=== PATIENT | male | born 1950 | race Caucasian/White ===

== ENCOUNTER 2018-10-22 15:51 | Inpatient (IN) | payer MEDICARE, MEDICAID ==
[~2018-10-22] VITALS: Ht 188 cm; Wt 88.7 kg
[2018-10-22] MEDS ORDERED: TAMS-11 PO (16:19)
[2018-10-22] MEDS ORDERED: OXYC-307 PO (16:19)
[2018-10-22] MEDS ORDERED: OMEP20TA62 PO (16:19)
[2018-10-22] MEDS ORDERED: GABA300C10 PO (16:19)
[2018-10-22] MEDS ORDERED: ATOR40TA78 PO (16:19)
[2018-10-22] MEDS ORDERED: METO25TA91 PO (16:19)
[2018-10-22] MEDS ORDERED: AMIT100T PO (16:19)
[2018-10-22] MEDS ORDERED: AMLO-150 PO (16:19)
[2018-10-22] MEDS ORDERED: LISI5TAB7 PO (16:19)
[2018-10-22] MEDS ORDERED: ASPI-496 PO (16:19)
[2018-10-22] MEDS ORDERED: CLOP75TA52 PO (16:19)
[2018-10-22 16:58] LABS: TROPONIN I 0.021 ng/mL (0.000-0.045)
[2018-10-22] MEDS ORDERED: PLEASE ENTER ALLERGIES MC SCH (18:00)
[2018-10-22] MEDS ORDERED: AZITHROMYCIN 500 MG in SODIUM CHLORIDE 0.9% 250 ML IV ONE (18:00)
[2018-10-22] MEDS ORDERED: CEFTRIAXONE PMX 1GM/50ML 50 ML IV ONE (18:00)
[2018-10-22] MEDS ORDERED: CEFTRIAXONE PMX 1GM/50ML 50 ML ONE (18:03)
[2018-10-22] MEDS ORDERED: ONDANSETRON ODT 4 MG PO PRN (19:00)
[2018-10-22] MEDS ORDERED: BISACODYL 10 MG SUPP PR PRN (19:00)
[2018-10-22] MEDS ORDERED: ACETAMINOPHEN 325 MG TABLET PO PRN (19:00)
[2018-10-22] MEDS ORDERED: FUROSEMIDE 40 MG/4 ML IV ONE (19:00)
[2018-10-22 19:03] LABS: INTERNATIONAL NORMALIZED RATIO 0.97 (0.93-1.1); PROTHROMBIN TIME 10.3 Seconds (9.6-11.5)
[2018-10-22 19:38] VITALS: BP 164/91
[2018-10-22] MEDS: GABAPENTIN 300 MG CAPSULE PO SCH (21:31)
[2018-10-22] MEDS: AMLODIPINE 5 MG TABLET PO SCH (21:32)
[2018-10-22] MEDS: AMITRIPTYLINE 50 MG TABLET PO SCH (21:32)
[2018-10-22] MEDS: ATORVASTATIN 40 MG TABLET PO SCH (21:32)
[2018-10-22] MEDS: NICOTINE 14MG/24 HR PATCH.TD24 TD SCH (21:36)
[2018-10-23 01:30] VITALS: BP 149/84
[2018-10-23 05:29] LABS: BASOPHILS # (AUTO) 0.03 x10^3/uL (0-0.1); BASOPHILS % (AUTO) 0 % (0-1); EOSINOPHILS # (AUTO) 0.04 x10^3/uL (0-0.4); EOSINOPHILS % (AUTO) 0 % (1-7); LYMPHOCYTES # (AUTO) 1.13 x10^3/uL (1-3.4); LYMPHOCYTES % (AUTO) 10 % (22-44); MD NO; MEAN CORPUSCULAR HEMOGLOBIN 31.6 pg (27.5-34.5); MEAN CORPUSCULAR HGB CONC 32.9 g/dL (33.2-36.2); MEAN CORPUSCULAR VOLUME 95.9 fL (81-97); MEAN PLATELET VOLUME 8.6 fL (7.4-10.4); MONOCYTES # (AUTO) 0.97 x10^3/uL (0.2-0.8); MONOCYTES % (AUTO) 9 % (2-9); NEUTROPHILS # (AUTO) 8.98 x10^3/uL (1.8-6.8); NEUTROPHILS % (AUTO) 81 % (42-75); PLATELET COUNT 153 x10^3/uL (130-400); RED BLOOD COUNT 4.96 x10^6/uL (4.38-5.82); RED CELL DISTRIBUTION WIDTH 16.1 % (9.4-14.8)
[2018-10-23 05:39] LABS: ALBUMIN 2.4 g/dL (3.4-5.0); CALCIUM 8.7 mg/dL (8.5-10.1); CHLORIDE 101 mmol/L (98-107)
[2018-10-23 05:46] LABS: ALANINE AMINOTRANSFERASE 58 U/L (12-78); ALKALINE PHOSPHATASE 85 U/L (45-117); ANION GAP 10 mmol/L (5-15); BILIRUBIN,TOTAL 0.7 mg/dL (0.2-1.0); CREATININE 1.59 mg/dL (0.7-1.3); TROPONIN I 0.015 ng/mL (0.000-0.045)
[2018-10-23] MEDS ORDERED: FUROSEMIDE 20 MG/2 ML IV SCH (07:30)
[2018-10-23 07:32] VITALS: BP 152/79
[2018-10-23] MEDS: ASPIRIN 81 MG TABLET EC PO SCH (08:49)
[2018-10-23] MEDS: AMLODIPINE 5 MG TABLET PO SCH ×2 (08:49→20:58)
[2018-10-23] MEDS: OMEPRAZOLE 20 MG CAPSULE.DR PO SCH (08:50)
[2018-10-23] MEDS: CLOPIDOGREL 75 MG TABLET PO SCH (08:50)
[2018-10-23] MEDS: METOPROLOL SUCCINATE 25 MG TAB.ER.24H PO SCH (08:50)
[2018-10-23] MEDS: TAMSULOSIN 0.4 MG CAP.ER.24H PO SCH (08:50)
[2018-10-23] MEDS: GABAPENTIN 300 MG CAPSULE PO SCH ×3 (08:50→20:58)
[2018-10-23] MEDS: SENNA/DOCUSATE TABLET PO SCH (08:50)
[2018-10-23] MEDS ORDERED: AMLODIPINE 5 MG TABLET PO SCH (09:00)
[2018-10-23 12:06] LABS: TROPONIN I < 0.015 ng/mL (0.000-0.045)
[2018-10-23 13:43] VITALS: BP 149/86
[2018-10-23] MEDS: POTASSIUM CHLORIDE 10 MEQ in SODIUM CHLORIDE 0.9% 1,000 ML IV SCH (14:34)
[2018-10-23 16:15] LABS: CULTURE INDICATED? YES; MICROSCOPIC INDICATED
[2018-10-23] MEDS ORDERED: OPIUM/BELLADONNA SUPP.RECT 16.2-30 MG PR ONE ×2 (16:30→17:00)
[2018-10-23] MEDS ORDERED: OPIUM/BELLADONNA SUPP.RECT 16.2-30 MG PR PRN (17:00)
[2018-10-23] MEDS: CEFTRIAXONE PMX 1GM/50ML 50 ML IV SCH (17:46)
[2018-10-23] MEDS ORDERED: AZITHROMYCIN 500 MG in SODIUM CHLORIDE 0.9% 250 ML IV SCH (18:30)
[2018-10-23] MEDS: AMITRIPTYLINE 50 MG TABLET PO SCH (20:57)
[2018-10-23] MEDS: ATORVASTATIN 40 MG TABLET PO SCH (20:58)
[2018-10-23] MEDS: NICOTINE 14MG/24 HR PATCH.TD24 TD SCH (21:01)
[2018-10-23 21:03] VITALS: BP 166/91
[2018-10-24 01:02] VITALS: BP 163/94
[2018-10-24 05:16] LABS: BASOPHILS # (AUTO) 0.01 x10^3/uL (0-0.1); BASOPHILS % (AUTO) 0 % (0-1); EOSINOPHILS # (AUTO) 0.06 x10^3/uL (0-0.4); EOSINOPHILS % (AUTO) 1 % (1-7); LYMPHOCYTES # (AUTO) 1.06 x10^3/uL (1-3.4); LYMPHOCYTES % (AUTO) 12 % (22-44); MD NO; MEAN CORPUSCULAR HEMOGLOBIN 31.6 pg (27.5-34.5); MEAN CORPUSCULAR HGB CONC 32.8 g/dL (33.2-36.2); MEAN CORPUSCULAR VOLUME 96.5 fL (81-97); MEAN PLATELET VOLUME 8.3 fL (7.4-10.4); MONOCYTES # (AUTO) 0.74 x10^3/uL (0.2-0.8); MONOCYTES % (AUTO) 8 % (2-9); NEUTROPHILS # (AUTO) 7.21 x10^3/uL (1.8-6.8); NEUTROPHILS % (AUTO) 79 % (42-75); PLATELET COUNT 186 x10^3/uL (130-400); RED BLOOD COUNT 4.98 x10^6/uL (4.38-5.82)
[2018-10-24 05:26] LABS: ALBUMIN 2.5 g/dL (3.4-5.0); ANION GAP 9 mmol/L (5-15); CHLORIDE 103 mmol/L (98-107)
[2018-10-24 05:29] LABS: ALANINE AMINOTRANSFERASE 69 U/L (12-78); ALKALINE PHOSPHATASE 96 U/L (45-117); BILIRUBIN,TOTAL 0.7 mg/dL (0.2-1.0); CREATININE 1.47 mg/dL (0.7-1.3); TOTAL PROTEIN 7.5 g/dL (6.4-8.2)
[2018-10-24] MEDS ORDERED: HYDROmorphone 2 MG/ML, 1ML ONE (08:48)
[2018-10-24] MEDS: HYDROmorphone 2 MG/ML, 1ML IVPush PRN ×3 (08:54→23:57)
[2018-10-24 09:13] VITALS: BP 160/90
[2018-10-24] MEDS: ASPIRIN 81 MG TABLET EC PO SCH (10:38)
[2018-10-24] MEDS: AMLODIPINE 5 MG TABLET PO SCH ×2 (10:38→21:26)
[2018-10-24] MEDS: CLOPIDOGREL 75 MG TABLET PO SCH (10:38)
[2018-10-24] MEDS: TAMSULOSIN 0.4 MG CAP.ER.24H PO SCH (10:38)
[2018-10-24] MEDS: METOPROLOL SUCCINATE 25 MG TAB.ER.24H PO SCH (10:38)
[2018-10-24] MEDS: GABAPENTIN 300 MG CAPSULE PO SCH ×3 (10:38→21:26)
[2018-10-24] MEDS: OMEPRAZOLE 20 MG CAPSULE.DR PO SCH (10:41)
[2018-10-24] MEDS: SENNA/DOCUSATE TABLET PO SCH (10:41)
[2018-10-24] MEDS ORDERED: OMNIPAQUE 350 MG/ML, 75ML BOTTLE ONE (11:09)
[2018-10-24] MEDS ORDERED: SODIUM CHLORIDE 0.9% 1,000 ML IV SCH (13:00)
[2018-10-24] MEDS: POTASSIUM CHLORIDE 10 MEQ in SODIUM CHLORIDE 0.9% 1,000 ML IV SCH (13:43)
[2018-10-24 13:59] VITALS: BP 160/98
[2018-10-24] MEDS: CEFTRIAXONE PMX 1GM/50ML 50 ML IV SCH (17:50)
[2018-10-24 19:51] VITALS: BP 146/80
[2018-10-24] MEDS: ATORVASTATIN 40 MG TABLET PO SCH (21:26)
[2018-10-24] MEDS: AMITRIPTYLINE 50 MG TABLET PO SCH (21:26)
[2018-10-24] MEDS: NICOTINE 14MG/24 HR PATCH.TD24 TD SCH (21:27)
[2018-10-24] MEDS ORDERED: OMNIPAQUE 350 MG/ML, 100ML BOTTLE ONE (22:20)
[2018-10-25] VITALS (7 sets, daily range): BP systolic 149–177; BP diastolic 77–105
[2018-10-25 05:17] LABS: ALBUMIN 2.2 g/dL (3.4-5.0); ANION GAP 7 mmol/L (5-15); CALCIUM 8.8 mg/dL (8.5-10.1); CHLORIDE 104 mmol/L (98-107); CREATININE 1.32 mg/dL (0.7-1.3)
[2018-10-25] MEDS: HYDROmorphone 2 MG/ML, 1ML IVPush PRN ×4 (05:30→21:14)
[2018-10-25] MEDS ORDERED: MAGNESIUM SULFATE PMX 2GM/50ML 50 ML IV ONE (06:00)
[2018-10-25] MEDS ORDERED: POTASSIUM PHOSPHATE 44 MEQ in SODIUM CHLORIDE 0.9% 500 ML IV ONE (06:00)
[2018-10-25] MEDS: CLOPIDOGREL 75 MG TABLET PO SCH (09:00)
[2018-10-25] MEDS ORDERED: POTASSIUM CHLORIDE 10 MEQ in SODIUM CHLORIDE 0.9% 1,000 ML IV SCH (09:30)
[2018-10-25] MEDS: ASPIRIN 81 MG TABLET EC PO SCH (09:51)
[2018-10-25] MEDS: METOPROLOL SUCCINATE 25 MG TAB.ER.24H PO SCH (09:51)
[2018-10-25] MEDS: SENNA/DOCUSATE TABLET PO SCH (09:51)
[2018-10-25] MEDS: OMEPRAZOLE 20 MG CAPSULE.DR PO SCH (09:51)
[2018-10-25] MEDS: GABAPENTIN 300 MG CAPSULE PO SCH ×3 (09:52→21:04)
[2018-10-25] MEDS: AMLODIPINE 5 MG TABLET PO SCH ×2 (09:52→21:04)
[2018-10-25] MEDS: TAMSULOSIN 0.4 MG CAP.ER.24H PO SCH (09:52)
[2018-10-25] MEDS ORDERED: FLUMAZENIL 0.1 MG/1 ML, 5ML ONE (13:41)
[2018-10-25] MEDS ORDERED: MIDAZOLAM 1 MG/ML, 5ML ONE (13:41)
[2018-10-25] MEDS ORDERED: FENTANYL PF 100 MCG/2ML ONE (13:41)
[2018-10-25] MEDS ORDERED: HEPARIN 1,000 UNITS/ML, 10ML ONE (13:42)
[2018-10-25] MEDS ORDERED: PROTAMINE SULFATE 10 MG/ML, 25ML ONE (13:42)
[2018-10-25] MEDS ORDERED: NALOXONE 1 MG/ML, 2ML ONE (13:42)
[2018-10-25] MEDS ORDERED: hydrALAzine 20 MG/ML, 1ML IV PRN (17:30)
[2018-10-25] MEDS: NICOTINE 14MG/24 HR PATCH.TD24 TD SCH (21:03)
[2018-10-25] MEDS: ATORVASTATIN 40 MG TABLET PO SCH (21:04)
[2018-10-25] MEDS: AMITRIPTYLINE 50 MG TABLET PO SCH (21:04)
[2018-10-25] MEDS: hydrALAzine 20 MG/ML, 1ML IV PRN (22:49)
[2018-10-26] MEDS: HYDROmorphone 2 MG/ML, 1ML IVPush PRN ×6 (00:37→23:55)
[2018-10-26 02:00] VITALS: BP 149/73
[2018-10-26 05:04] LABS: ALBUMIN 2.3 g/dL (3.4-5.0); ANION GAP 9 mmol/L (5-15); CALCIUM 8.7 mg/dL (8.5-10.1); CHLORIDE 103 mmol/L (98-107); CREATININE 1.21 mg/dL (0.7-1.3)
[2018-10-26 05:12] LABS: BASOPHILS # (AUTO) 0.03 x10^3/uL (0-0.1); BASOPHILS % (AUTO) 0 % (0-1); EOSINOPHILS # (AUTO) 0.13 x10^3/uL (0-0.4); EOSINOPHILS % (AUTO) 2 % (1-7); LYMPHOCYTES # (AUTO) 1.19 x10^3/uL (1-3.4); LYMPHOCYTES % (AUTO) 17 % (22-44); MD NO; MEAN CORPUSCULAR HEMOGLOBIN 31.3 pg (27.5-34.5); MEAN CORPUSCULAR HGB CONC 32.5 g/dL (33.2-36.2); MEAN CORPUSCULAR VOLUME 96.1 fL (81-97); MEAN PLATELET VOLUME 7.9 fL (7.4-10.4); MONOCYTES # (AUTO) 0.67 x10^3/uL (0.2-0.8); MONOCYTES % (AUTO) 9 % (2-9); NEUTROPHILS # (AUTO) 5.05 x10^3/uL (1.8-6.8); NEUTROPHILS % (AUTO) 71 % (42-75); PLATELET COUNT 214 x10^3/uL (130-400); RED BLOOD COUNT 4.85 x10^6/uL (4.38-5.82); RED CELL DISTRIBUTION WIDTH 16.1 % (9.4-14.8)
[2018-10-26 05:26] LABS: PREALBUMIN 11.1 mg/dL (20.0-40.0)
[2018-10-26] MEDS ORDERED: PROTAMINE SULFATE 10 MG/ML, 5ML ONE (06:51)
[2018-10-26] MEDS ORDERED: BACITRACIN 50,000 UNIT ONE (06:52)
[2018-10-26] MEDS ORDERED: THROMBIN 20,000 UNIT VIAL TP ONE (06:52)
[2018-10-26] MEDS ORDERED: HEPARIN 1,000 UNITS/ML, 30ML ONE (06:52)
[2018-10-26] MEDS ORDERED: MIDAZOLAM 1 MG/ML, 2ML ONE (07:03)
[2018-10-26] MEDS ORDERED: FENTANYL PF 250 MCG/5ML ONE ×3 (07:03→09:52)
[2018-10-26] MEDS: OMEPRAZOLE 20 MG CAPSULE.DR PO SCH (07:30)
[2018-10-26] MEDS: SENNA/DOCUSATE TABLET PO SCH (09:00)
[2018-10-26] MEDS: ASPIRIN 81 MG TABLET EC PO SCH (09:00)
[2018-10-26] MEDS: TAMSULOSIN 0.4 MG CAP.ER.24H PO SCH (09:00)
[2018-10-26] MEDS: CLOPIDOGREL 75 MG TABLET PO SCH (09:00)
[2018-10-26] MEDS: GABAPENTIN 300 MG CAPSULE PO SCH ×3 (09:00→21:47)
[2018-10-26] MEDS: AMLODIPINE 5 MG TABLET PO SCH ×2 (09:00→21:47)
[2018-10-26] MEDS ORDERED: ROCURONIUM 10MG/ML,5ML ONE ×2 (09:10→09:11)
[2018-10-26] MEDS ORDERED: DEXAMETHASONE 4 MG/ML, 1ML ONE ×2 (09:11)
[2018-10-26] MEDS ORDERED: PROPOFOL 50 ML ONE (09:11)
[2018-10-26] MEDS ORDERED: PROPOFOL 100 ML IV ONE (10:29)
[2018-10-26] MEDS ORDERED: CEFTRIAXONE PMX 1GM/50ML 50 ML IV SCH (10:30)
[2018-10-26] MEDS ORDERED: CEFAZOLIN 1,000 MG ONE (10:36)
[2018-10-26] MEDS ORDERED: PROPOFOL 100 ML IV PRN (10:44)
[2018-10-26] MEDS: hydrALAzine 20 MG/ML, 1ML IV PRN ×2 (10:48→17:24)
[2018-10-26] MEDS ORDERED: SENNOSIDES 8.8 MG/5 ML ORAL SOL NG PRN (11:00)
[2018-10-26] MEDS ORDERED: LIDOCAINE-MPF 1%, 2ML ENDO PRN (11:00)
[2018-10-26] MEDS ORDERED: BISACODYL 10 MG SUPP PR PRN (11:00)
[2018-10-26] MEDS ORDERED: LACTULOSE 20 GM/30 ML UDC NG PRN (11:00)
[2018-10-26] MEDS ORDERED: SENNA/DOCUSATE TABLET NG PRN (11:00)
[2018-10-26] MEDS ORDERED: PHARMACY MAY ADJ FOR RENAL FX MC SCH (11:00)
[2018-10-26 11:21] LABS: MEAN CORPUSCULAR HEMOGLOBIN 31.5 pg (27.5-34.5); MEAN CORPUSCULAR HGB CONC 32.8 g/dL (33.2-36.2); MEAN CORPUSCULAR VOLUME 96.3 fL (81-97); MEAN PLATELET VOLUME 7.8 fL (7.4-10.4); PLATELET COUNT 196 x10^3/uL (130-400); RED BLOOD COUNT 4.98 x10^6/uL (4.38-5.82); RED CELL DISTRIBUTION WIDTH 16.1 % (9.4-14.8)
[2018-10-26 11:30] LABS: ANION GAP 10 mmol/L (5-15); CALCIUM 8.3 mg/dL (8.5-10.1); CHLORIDE 105 mmol/L (98-107); CREATININE 1.07 mg/dL (0.7-1.3); TRIGLYCERIDES 121 mg/dL (50-200)
[2018-10-26 11:42] LABS: BASOPHILS # (AUTO) 0.03 x10^3/uL (0-0.1); BASOPHILS % (AUTO) 0 % (0-1); EOSINOPHILS # (AUTO) 0.05 x10^3/uL (0-0.4); EOSINOPHILS % (AUTO) 1 % (1-7); LYMPHOCYTES # (AUTO) 0.52 x10^3/uL (1-3.4); LYMPHOCYTES % (AUTO) 5 % (22-44); MD SCAN; MONOCYTES # (AUTO) 0.34 x10^3/uL (0.2-0.8); MONOCYTES % (AUTO) 3 % (2-9); NEUTROPHILS # (AUTO) 9.92 x10^3/uL (1.8-6.8); NEUTROPHILS % (AUTO) 91 % (42-75)
[2018-10-26] MEDS ORDERED: MAGNESIUM SULFATE 4 GM in SODIUM CHLORIDE 0.9% 100 ML IV ONE (12:30)
[2018-10-26] MEDS ORDERED: MAGNESIUM SULFATE PMX 4GM/100M 100 ML IVPB ONE (13:00)
[2018-10-26] MEDS ORDERED: HYDROmorphone 1 MG/ML, 1ML IV PRN (13:30)
[2018-10-26] MEDS ORDERED: LACTATED RINGERS 500 ML IV PRN (13:30)
[2018-10-26] MEDS ORDERED: ONDANSETRON 2MG/ML, 2ML IV PRN (13:30)
[2018-10-26] MEDS: POTASSIUM CHLORIDE 20 MEQ in D5%-0.45% NACL 1,000 ML IV SCH (13:48)
[2018-10-26] MEDS ORDERED: HYDROmorphone 2 MG/ML, 1ML ONE ×3 (16:46→20:12)
[2018-10-26] MEDS: METOPROLOL TARTRATE 25 MG TABLET PO SCH (17:25)
[2018-10-26] MEDS: morphine SULFATE 10 MG/ML, 1ML IV PRN ×3 (17:29→21:47)
[2018-10-26] MEDS: CEFOTETAN PMX 1GM/50ML 50 ML IV SCH (19:49)
[2018-10-26] MEDS: FAMOTIDINE 20 MG/2 ML IVPush SCH (21:47)
[2018-10-26] MEDS: ATORVASTATIN 40 MG TABLET PO SCH (21:47)
[2018-10-26] MEDS: AMITRIPTYLINE 50 MG TABLET PO SCH (21:47)
[2018-10-27] MEDS: morphine SULFATE 10 MG/ML, 1ML IV PRN ×6 (01:05→19:15)
[2018-10-27] MEDS: HYDROmorphone 2 MG/ML, 1ML IVPush PRN ×3 (02:19→06:35)
[2018-10-27] MEDS: POTASSIUM CHLORIDE 20 MEQ in D5%-0.45% NACL 1,000 ML IV SCH ×2 (02:21→13:47)
[2018-10-27] MEDS: hydrALAzine 20 MG/ML, 1ML IV PRN (03:35)
[2018-10-27 04:35] LABS: BASOPHILS # (AUTO) 0.12 x10^3/uL (0-0.1); BASOPHILS % (AUTO) 1 % (0-1); EOSINOPHILS # (AUTO) 0.01 x10^3/uL (0-0.4); EOSINOPHILS % (AUTO) 0 % (1-7); LYMPHOCYTES # (AUTO) 0.67 x10^3/uL (1-3.4); LYMPHOCYTES % (AUTO) 6 % (22-44); MD NO; MEAN CORPUSCULAR HEMOGLOBIN 30.8 pg (27.5-34.5); MEAN CORPUSCULAR HGB CONC 32.4 g/dL (33.2-36.2); MEAN CORPUSCULAR VOLUME 94.9 fL (81-97); MEAN PLATELET VOLUME 8.1 fL (7.4-10.4); MONOCYTES # (AUTO) 0.96 x10^3/uL (0.2-0.8); MONOCYTES % (AUTO) 8 % (2-9); NEUTROPHILS % (AUTO) 85 % (42-75); PLATELET COUNT 252 x10^3/uL (130-400); RED BLOOD COUNT 4.93 x10^6/uL (4.38-5.82)
[2018-10-27 04:48] LABS: ALBUMIN 2.2 g/dL (3.4-5.0); ANION GAP 7 mmol/L (5-15); CHLORIDE 107 mmol/L (98-107)
[2018-10-27 04:51] LABS: ALANINE AMINOTRANSFERASE 46 U/L (12-78); ALKALINE PHOSPHATASE 82 U/L (45-117); BILIRUBIN,TOTAL 0.3 mg/dL (0.2-1.0); TOTAL PROTEIN 6.4 g/dL (6.4-8.2)
[2018-10-27] MEDS ORDERED: HYDROmorphone 2 MG/ML, 1ML ONE (06:33)
[2018-10-27] MEDS: METOPROLOL TARTRATE 25 MG TABLET PO SCH ×2 (06:35→18:11)
[2018-10-27] MEDS: CEFOTETAN PMX 1GM/50ML 50 ML IV SCH (08:23)
[2018-10-27] MEDS ORDERED: NOREPINEPHRINE 4 MG in SODIUM CHLORIDE 0.9% 246 ML IV PRN (08:30)
[2018-10-27] MEDS: OXYcodone 5 MG/5 ML ORAL.SOL UDC NG PRN ×4 (08:39→22:12)
[2018-10-27] MEDS: FAMOTIDINE 20 MG/2 ML IVPush SCH ×2 (08:39→21:10)
[2018-10-27] MEDS: CLOPIDOGREL 75 MG TABLET PO SCH (08:40)
[2018-10-27] MEDS: AMLODIPINE 5 MG TABLET PO SCH ×2 (08:40→21:10)
[2018-10-27] MEDS: SENNA/DOCUSATE TABLET PO SCH (08:40)
[2018-10-27] MEDS: ASPIRIN 81 MG TABLET EC PO SCH (08:40)
[2018-10-27] MEDS: TAMSULOSIN 0.4 MG CAP.ER.24H PO SCH (08:40)
[2018-10-27] MEDS: GABAPENTIN 300 MG CAPSULE PO SCH ×3 (08:40→21:10)
[2018-10-27] MEDS: POLYETHYLENE GLYCOL 17 GM PACKET PO PRN (16:20)
[2018-10-27] MEDS: ATORVASTATIN 40 MG TABLET PO SCH (21:09)
[2018-10-27] MEDS: AMITRIPTYLINE 50 MG TABLET PO SCH (21:10)
[2018-10-27] MEDS: BUDESONIDE 0.5 MG/2 ML INHA INH SCH (21:24)
[2018-10-28] MEDS: morphine SULFATE 10 MG/ML, 1ML IV PRN ×3 (00:50→05:36)
[2018-10-28] MEDS: OXYcodone 5 MG/5 ML ORAL.SOL UDC NG PRN ×3 (02:25→15:49)
[2018-10-28] MEDS: POTASSIUM CHLORIDE 20 MEQ in D5%-0.45% NACL 1,000 ML IV SCH (03:15)
[2018-10-28 04:22] LABS: BASOPHILS # (AUTO) 0.06 x10^3/uL (0-0.1); BASOPHILS % (AUTO) 1 % (0-1); EOSINOPHILS # (AUTO) 0.14 x10^3/uL (0-0.4); EOSINOPHILS % (AUTO) 2 % (1-7); LYMPHOCYTES # (AUTO) 1.22 x10^3/uL (1-3.4); LYMPHOCYTES % (AUTO) 14 % (22-44); MD NO; MEAN CORPUSCULAR HEMOGLOBIN 30.7 pg (27.5-34.5); MEAN CORPUSCULAR HGB CONC 31.7 g/dL (33.2-36.2); MEAN CORPUSCULAR VOLUME 96.7 fL (81-97); MEAN PLATELET VOLUME 7.8 fL (7.4-10.4); MONOCYTES # (AUTO) 1.06 x10^3/uL (0.2-0.8); MONOCYTES % (AUTO) 12 % (2-9); NEUTROPHILS % (AUTO) 72 % (42-75); PLATELET COUNT 285 x10^3/uL (130-400); RED BLOOD COUNT 4.63 x10^6/uL (4.38-5.82); RED CELL DISTRIBUTION WIDTH 16.2 % (9.4-14.8)
[2018-10-28 04:33] LABS: ANION GAP 5 mmol/L (5-15); CALCIUM 8.2 mg/dL (8.5-10.1); CHLORIDE 104 mmol/L (98-107); CREATININE 1.23 mg/dL (0.7-1.3)
[2018-10-28 05:00] VITALS: BP 107/64
[2018-10-28] MEDS: METOPROLOL TARTRATE 25 MG TABLET PO SCH ×2 (05:36→17:58)
[2018-10-28] MEDS: ASPIRIN 81 MG TABLET EC PO SCH (08:45)
[2018-10-28] MEDS: GABAPENTIN 300 MG CAPSULE PO SCH ×3 (08:45→21:26)
[2018-10-28] MEDS: CLOPIDOGREL 75 MG TABLET PO SCH (08:45)
[2018-10-28] MEDS: BUDESONIDE 0.5 MG/2 ML INHA INH SCH ×3 (08:46→21:35)
[2018-10-28] MEDS: FAMOTIDINE 20 MG/2 ML IVPush SCH ×2 (08:46→21:24)
[2018-10-28] MEDS: SENNA/DOCUSATE TABLET PO SCH (08:47)
[2018-10-28] MEDS: AMLODIPINE 5 MG TABLET PO SCH ×2 (08:48→21:26)
[2018-10-28] MEDS: TAMSULOSIN 0.4 MG CAP.ER.24H PO SCH (08:48)
[2018-10-28] MEDS: OXYcodone/APAP 10/325MG TABLET PO PRN (17:58)
[2018-10-28 20:49] VITALS: BP 130/84
[2018-10-28] MEDS: POLYETHYLENE GLYCOL 17 GM PACKET PO PRN (21:24)
[2018-10-28] MEDS: AMITRIPTYLINE 50 MG TABLET PO SCH (21:25)
[2018-10-28] MEDS: ATORVASTATIN 40 MG TABLET PO SCH (21:26)
[2018-10-29 01:37] VITALS: BP 144/88
[2018-10-29] MEDS: OXYcodone/APAP 10/325MG TABLET PO PRN ×3 (02:59→20:38)
[2018-10-29] MEDS ORDERED: HYDROmorphone 2 MG/ML, 1ML ONE (04:16)
[2018-10-29] MEDS: HYDROmorphone 2 MG/ML, 1ML IVPush PRN (04:21)
[2018-10-29] MEDS: METOPROLOL TARTRATE 25 MG TABLET PO SCH ×2 (05:15→18:01)
[2018-10-29] MEDS: BUDESONIDE 0.5 MG/2 ML INHA INH SCH ×2 (06:51→20:20)
[2018-10-29] MEDS ORDERED: HYDROmorphone 1 MG/ML, 1ML IV PRN (08:00)
[2018-10-29] MEDS ORDERED: LACTULOSE 20 GM/30 ML UDC PO PRN (08:00)
[2018-10-29] MEDS: TAMSULOSIN 0.4 MG CAP.ER.24H PO SCH (08:27)
[2018-10-29] MEDS: FAMOTIDINE 20 MG/2 ML IVPush SCH ×2 (08:27→20:38)
[2018-10-29] MEDS: CLOPIDOGREL 75 MG TABLET PO SCH (08:28)
[2018-10-29] MEDS: ASPIRIN 81 MG TABLET EC PO SCH (08:28)
[2018-10-29] MEDS: SENNA/DOCUSATE TABLET PO SCH (08:28)
[2018-10-29] MEDS: GABAPENTIN 300 MG CAPSULE PO SCH ×3 (08:28→20:38)
[2018-10-29] MEDS: AMLODIPINE 5 MG TABLET PO SCH ×2 (08:28→20:39)
[2018-10-29 08:56] VITALS: BP 145/83
[2018-10-29 14:13] VITALS: BP 125/80
[2018-10-29 19:00] VITALS: BP 126/81
[2018-10-29] MEDS: AMITRIPTYLINE 50 MG TABLET PO SCH (20:38)
[2018-10-29] MEDS: ATORVASTATIN 40 MG TABLET PO SCH (20:38)
[2018-10-30 01:36] VITALS: BP 133/87
[2018-10-30] MEDS: METOPROLOL TARTRATE 25 MG TABLET PO SCH ×2 (05:25→17:19)
[2018-10-30] MEDS: OXYcodone/APAP 10/325MG TABLET PO PRN ×2 (05:25→17:19)
[2018-10-30] MEDS: BUDESONIDE 0.5 MG/2 ML INHA INH SCH ×2 (06:27→21:00)
[2018-10-30] MEDS ORDERED: PINK LADY ENEMA 490 ML BOTTLE PR PRN (07:00)
[2018-10-30 08:09] VITALS: BP 143/76
[2018-10-30] MEDS: GABAPENTIN 300 MG CAPSULE PO SCH ×3 (08:36→21:54)
[2018-10-30] MEDS: SENNA/DOCUSATE TABLET PO SCH (08:36)
[2018-10-30] MEDS: ASPIRIN 81 MG TABLET EC PO SCH (08:37)
[2018-10-30] MEDS: AMLODIPINE 5 MG TABLET PO SCH ×2 (08:37→21:53)
[2018-10-30] MEDS: FAMOTIDINE 20 MG/2 ML IVPush SCH ×2 (08:37→21:53)
[2018-10-30] MEDS: CLOPIDOGREL 75 MG TABLET PO SCH (08:37)
[2018-10-30] MEDS: TAMSULOSIN 0.4 MG CAP.ER.24H PO SCH (08:37)
[2018-10-30] MEDS ORDERED: SENN1TAB8 PO (11:22)
[2018-10-30 14:29] VITALS: BP 129/85
[2018-10-30] MEDS ORDERED: HYDROmorphone 2 MG/ML, 1ML ONE (15:35)
[2018-10-30 19:39] VITALS: BP 130/88
[2018-10-30] MEDS: AMITRIPTYLINE 50 MG TABLET PO SCH (21:53)
[2018-10-30] MEDS: ATORVASTATIN 40 MG TABLET PO SCH (21:54)
[2018-10-31] MEDS: OXYcodone/APAP 10/325MG TABLET PO PRN ×2 (00:45→09:33)
[2018-10-31 01:39] VITALS: BP 125/87
[2018-10-31 06:42] VITALS: BP 162/80
[2018-10-31] MEDS: METOPROLOL TARTRATE 25 MG TABLET PO SCH (06:44)
[2018-10-31] MEDS: ASPIRIN 81 MG TABLET EC PO SCH (09:33)
[2018-10-31] MEDS: GABAPENTIN 300 MG CAPSULE PO SCH (09:33)
[2018-10-31] MEDS: SENNA/DOCUSATE TABLET PO SCH (09:33)
[2018-10-31] MEDS: TAMSULOSIN 0.4 MG CAP.ER.24H PO SCH (09:34)
[2018-10-31] MEDS: AMLODIPINE 5 MG TABLET PO SCH (09:34)
[2018-10-31] MEDS: CLOPIDOGREL 75 MG TABLET PO SCH (09:34)
[2018-10-31] MEDS: FAMOTIDINE 20 MG/2 ML IVPush SCH (09:34)
[2018-10-31] MEDS: BUDESONIDE 0.5 MG/2 ML INHA INH SCH (09:57)
[2018-10-31 12:28] VITALS: BP 135/93
[2018-10-31 14:48] VITALS: BP 142/94
== END 2018-10-31 15:56 | disposition home or self-care (01) | DRG 268 ==
LOC: ED 17:42 → EDIP 18:32 → 4WST 19:32 → CCU 10-26 10:10 → 4NOR 10-28 18:23 → DCLOUNGE 10-31 15:46
PROVIDERS: ADMIT Hospitalist; ATTEND Hospitalist
PROC: B41D1ZZ Fluoroscopy of Aorta and Bilateral Lower Extremity Arteries using Low Osmolar Contrast (ICD-10-PCS; principal; 2018-10-25)
PROC: 04100JK Bypass Abdominal Aorta to Bilateral Femoral Arteries with Synthetic Substitute, Open Approach (ICD-10-PCS; 2018-10-25)
PROC: 04C00ZZ Extirpation of Matter from Abdominal Aorta, Open Approach (ICD-10-PCS; 2018-10-26)
DX: I74.09 Other arterial embolism and thrombosis of abdominal aorta (principal); J96.20 Acute and chronic respiratory failure, unspecified whether with hypoxia or hypercapnia; E43 Unspecified severe protein-calorie malnutrition; N17.9 Acute kidney failure, unspecified; N28.0 Ischemia and infarction of kidney; Z99.11 Dependence on respirator [ventilator] status; I74.8 Embolism and thrombosis of other arteries; I73.9 Peripheral vascular disease, unspecified; E27.8 Other specified disorders of adrenal gland; W19.XXXA Unspecified fall, initial encounter; R33.8 Other retention of urine; N40.1 Benign prostatic hyperplasia with lower urinary tract symptoms; K59.00 Constipation, unspecified; M19.019 Primary osteoarthritis, unspecified shoulder; M47.9 Spondylosis, unspecified; K21.9 Gastro-esophageal reflux disease without esophagitis; N20.0 Calculus of kidney; D72.829 Elevated white blood cell count, unspecified; E78.5 Hyperlipidemia, unspecified; J44.9 Chronic obstructive pulmonary disease, unspecified; F12.90 Cannabis use, unspecified, uncomplicated; F17.210 Nicotine dependence, cigarettes, uncomplicated; I10 Essential (primary) hypertension; K40.90 Unilateral inguinal hernia, without obstruction or gangrene, not specified as recurrent; I25.10 Atherosclerotic heart disease of native coronary artery without angina pectoris; I71.4 Abdominal aortic aneurysm, without rupture; I25.2 Old myocardial infarction; Z86.73 Personal history of transient ischemic attack (TIA), and cerebral infarction without residual deficits; Z99.81 Dependence on supplemental oxygen; Z86.711 Personal history of pulmonary embolism; Z85.118 Personal history of other malignant neoplasm of bronchus and lung; Z82.3 Family history of stroke; Z68.25 Body mass index [BMI] 25.0-25.9, adult
CPT/HCPCS: 36200; 36415; 36600; 70551; 71045; 71260; 72148; 72190; 74177; 75630; 80047; 80048; 80053; 81001; 82040; 82533; 82803; 83605; 83735; 84100; 84134; 84145; 84478; 84484; 85025; 85610; 85730; 86850; 86900; 86923; 87040; 87070; 87081; 87086; 87205; 93005; 93306; 93922; 93925; 93978; 94002; 94150; 94640; 96365; 96375; 99156; 99157; 99285; C1768; G0378; J0456; J0690; J0696; J1100; J1170; J1644; J1940; J2250; J2405; J2704; J2720; J3010; J3480; J7626; Q9967; C1751; C1760; C1769; C1894; J0360; J2270; J2310; J3475; J3490; J7030; J7040; J7050